=== PATIENT | female | born 1990 | race Two or more races ===

== ENCOUNTER 2022-05-24 11:58 | Day surgery (SDC) | payer OTHER ==
[~2022-05-24] VITALS: Ht 162.6 cm; Wt 106.6 kg
[~2022-05-24 11:58] MED LIST: SIMPESSE 0.15-1 EACH PO; ZYRTEC10 M3 PO
[2022-05-24] MEDS ORDERED: AYR SALINE50 ML NASAL (14:08)
[2022-05-24] MEDS ORDERED: CEPHALEXIN500 MG PO (14:08)
== END 2022-05-24 16:55 | disposition home or self-care (01) ==
LOC: CIR.AMB 11:58
PROVIDERS: ATTEND Otolaryngology Otology & Neurotology
DX: J34.3 Hypertrophy of nasal turbinates (principal); J31.0 Chronic rhinitis; Z91.048 Other nonmedicinal substance allergy status; E66.9 Obesity, unspecified; Z20.822 Contact with and (suspected) exposure to COVID-19